=== PATIENT | male | born 1975 | race American Indian/Alaskan Native ===

== ENCOUNTER 2016-08-25 08:18 | Emergency (ER) | payer MEDICAID ==
[2016-08-25 08:18] VITALS: BMI 58.7
[2016-08-25 08:25] VITALS: TEMP 97.9
[2016-08-25 08:42] VITALS: BP 152/88; PULSE 77; RESP 16; O2SAT 100
--- NOTE | 2016-08-25 08:42 | ED PDOC ---
HPI: Hypertension/Hypotension Time Seen by Provider: 08/25/16 08:31 Chief Complaint (Nursing): High Blood Pressure Chief Complaint (Provider): High Blood Pressure History Per: Patient History/Exam Limitations: no limitations Onset/Duration Of Symptoms: Hrs Current Symptoms Are (Timing): Still Present Associated Symptoms: Headache. denies: Chest Pain Severity: Mild Exacerbating Factor(s): Pos: None Additional Complaint(s): Patient is a 40 year old male with a history of HTN, presents to ED for evaluation of a headache this morning. Patient states he developed a headache while at home, took his blood pressure and found it to be elevated at 170/130 which prompted ED visit. Patient denies chest pain, dizziness, palpation, SOB, numbness or peripheral weakness. Past Medical History Reviewed: Historical Data, Nursing Documentation, Vital Signs Vital Signs: Last Vital Signs Temp 97.9 F 08/25/16 08:24 Pulse 83 08/25/16 08:24 Resp 20 08/25/16 08:24 BP 130/95 H 08/25/16 08:24 Pulse Ox 100 08/25/16 08:24 - Medical History PMH: Gastritis, HTN, Hypercholesterolemia, Hyperlipidemia, Sleep Apnea (on CPap) - Surgical History Surgical History: No Surg Hx - Family History Family History: States: Unknown Family Hx - Living Arrangements Living Arrangements: With Family - Immunization History Hx Tetanus Toxoid Vaccination: Yes Hx Influenza Vaccination: Yes Hx Pneumococcal Vaccination: No - Home Medications Home Medications: Ambulatory Orders Medication Instructions Recorded amLODIPine [Norvasc] 10 mg PO DAILY #30 tab 05/12/16 Famotidine [Pepcid] 20 mg PO DAILY #14 tab 08/21/16 - Allergies Allergies/Adverse Reactions: Allergies Allergy/AdvReac Type Severity Reaction Status Date / Time Penicillins Allergy RASH Verified 08/25/16 08:41 shellfish Allergy ANAPHYLAXIS Uncoded 08/25/16 08:41 Review of Systems ROS Statement: Except As Marked, All Systems Reviewed And Found Negative Eyes: Negative for: Vision Change Cardiovascular: Negative for: Chest Pain, Palpitations Respiratory: Negative for: Shortness of Breath Gastrointestinal: Negative for: Nausea Musculoskeletal: Negative for: Neck Pain Neurological: Positive for: Headache. Negative for: Weakness, Numbness, Dizziness Physical Exam - Reviewed Nursing Documentation Reviewed: Yes Vital Signs Reviewed: Yes - Physical Exam Appears: Positive for: Non-toxic, No Acute Distress Skin: Positive for: Normal Color, Warm Eye Exam: Positive for: Normal appearance Neck: Positive for: Normal, Painless ROM Cardiovascular/Chest: Positive for: Regular Rate, Rhythm. Negative for: Murmur Respiratory: Positive for: Normal Breath Sounds. Negative for: Respiratory Distress Extremity: Positive for: Normal ROM. Negative for: Pedal Edema Neurologic/Psych: Positive for: Alert, Oriented. Negative for: Motor/Sensory Deficits - ECG O2 Sat by Pulse Oximetry: 100 (RA) Pulse Ox Interpretation: Normal Medical Decision Making Medical Decision Making: Time: 834 Initial impression: Elevated blood pressure Initial plan: -- Tylenol PO Blood pressure checked twice in ED with appropriate sized cuff, 150/88. Discussed with patient that he is likely using a cuff to small for him that is supply false elevated reading. Instructed to continue his Norvasc and follow up with PMD Scribe Attestation: Documented by Carey Singh acting as a scribe for Salo Ness MD MD Scribe Attestation: All medical record entries made by the Scribe were at my direction and personally dictated by me. I have reviewed the chart and agree that the record accurately reflects my personal performance of the history, physical exam, medical decision making, and the department course for this patient. I have also personally directed, reviewed, and agree with the discharge instructions and disposition. Disposition - Clinical Impression Clinical Impression: HTN (hypertension) - Patient ED Disposition Is Patient to be Admitted: No - Disposition Referrals: [facility] [Outside] Disposition: Routine/Home Disposition Time: 08:45 Condition: FAIR Instructions: Hypertension (ED)
== END 2016-08-25 09:04 | disposition home or self-care (01) ==
LOC: H.ER 08:18
DX: I10 Essential (primary) hypertension (principal); E78.00 Pure hypercholesterolemia, unspecified

== ENCOUNTER 2017-05-26 02:06 | Emergency (ER) | payer SELFPAY ==
[2017-05-26 02:06] VITALS: BMI 58.7
[2017-05-26 02:33] VITALS: BP 140/86; PULSE 73; RESP 16; TEMP 98.2; O2SAT 97
--- NOTE | 2017-05-26 03:42 | ED PDOC ---
HPI: Back Time Seen by Provider: 05/26/17 02:37 Chief Complaint (Nursing): Back Pain Chief Complaint (Provider): low back pain History Per: Patient History/Exam Limitations: no limitations Onset/Duration Of Symptoms: Days (3 weeks) Current Symptoms Are (Timing): Still Present Exacerbating Factor(s): Turning, Movement Additional History Per: Patient Additional Complaint(s): 41 y/o male presents with low back pain x 3 weeks. Patient seen at clinic at onset of symptoms and diagnosed with muscle spasms and advised to take Tylenol, but patient notes little improvement. Patient states pain worse when trying to get up and when walking. Denies known trauma, fever, nausea/vomiting, abdominal pain, extremity numbness/weakness, bowel/bladder incontinence. Past Medical History Reviewed: Historical Data, Nursing Documentation, Vital Signs Vital Signs: Last Vital Signs Temp 98.2 F 05/26/17 02:31 Pulse 73 05/26/17 02:31 Resp 16 05/26/17 02:31 BP 140/86 05/26/17 02:31 Pulse Ox 97 05/26/17 02:31 - Medical History PMH: Gastritis, HTN, Hypercholesterolemia, Hyperlipidemia, Sleep Apnea (on CPap) Denies: Chronic Kidney Disease - Family History Family History: States: Unknown Family Hx - Immunization History Hx Tetanus Toxoid Vaccination: Yes Hx Influenza Vaccination: Yes Hx Pneumococcal Vaccination: No - Home Medications Home Medications: Ambulatory Orders Medication Instructions Recorded amLODIPine [Norvasc] 10 mg PO DAILY #30 tab 05/12/16 Famotidine [Pepcid] 20 mg PO DAILY #14 tab 08/21/16 Cyclobenzaprine [Cyclobenzaprine 10 mg PO BID PRN #14 tab 05/26/17 HCl] Naproxen [Naprosyn] 500 mg PO Q12 PRN #20 tablet 05/26/17 - Allergies Allergies/Adverse Reactions: Allergies Allergy/AdvReac Type Severity Reaction Status Date / Time Penicillins Allergy RASH Verified 05/26/17 02:25 shellfish Allergy ANAPHYLAXIS Uncoded 08/25/16 08:41 Review of Systems ROS Statement: Except As Marked, All Systems Reviewed And Found Negative Musculoskeletal: Positive for: Back Pain Physical Exam - Reviewed Nursing Documentation Reviewed: Yes Vital Signs Reviewed: Yes - Physical Exam Appears: Positive for: Well, Non-toxic, No Acute Distress Head Exam: Positive for: ATRAUMATIC, NORMAL INSPECTION, NORMOCEPHALIC Skin: Positive for: Normal Color Eye Exam: Positive for: Normal appearance ENT: Positive for: Normal ENT Inspection Cardiovascular/Chest: Positive for: Regular Rate, Rhythm Respiratory: Positive for: Normal Breath Sounds Back: Positive for: Normal Inspection, Muscle Spasm (bilateral lspine paraspinal tenderness (R>L)). Negative for: L CVA Tenderness, R CVA Tenderness , Vertebral Tenderness, Decreased ROM Extremity: Positive for: Normal ROM Neurologic/Psych: Positive for: Alert, Oriented - ECG O2 Sat by Pulse Oximetry: 97 Disposition - Clinical Impression Clinical Impression: Low back pain - Disposition Disposition: Transfer of Care Disposition Time: 06:10 Condition: STABLE Prescriptions: Cyclobenzaprine [Cyclobenzaprine HCl] 10 mg PO BID PRN #14 tab PRN Reason: Muscle Spasm Naproxen [Naprosyn] 500 mg PO Q12 PRN #20 tablet PRN Reason: Pain, Moderate (4-7) Instructions: Acute Low Back Pain (ED) Forms: [employer] ([place]) Patient Signed Over To: Fina Dewey Handoff Comments: pending xray read
--- NOTE | 2017-05-26 06:19 | RAD ---
EXAM: XR Lumbar Spine, 2 or 3 Views CLINICAL HISTORY: 41 years old, male; Pain; Low back pain TECHNIQUE: Frontal and lateral views of the lumbar spine. COMPARISON: No relevant prior studies available. FINDINGS: Vertebrae: No acute fracture. Normal alignment. Small endplate spurs at multiple levels. Disc spaces: No acute findings. No significant narrowing. Soft tissues: Unremarkable. IMPRESSION: No acute fracture or dislocation.
== END 2017-05-26 06:51 | disposition home or self-care (01) ==
LOC: H.ER 02:06
DX: M54.5 Low back pain (principal); E78.00 Pure hypercholesterolemia, unspecified; I10 Essential (primary) hypertension; Z88.0 Allergy status to penicillin